=== PATIENT | female | born 2000 | race Caucasian/White ===

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

== ENCOUNTER 2019-04-18 12:17 | Emergency (ER) | payer SELFPAY ==
[~2019-04-18] VITALS: Ht 177.8 cm; Wt 122.7 kg
[2019-04-18] MEDS ORDERED: TETANUS,DIPTH,PERTUSS P/F (BOOSTRIX) 0.5 ML VIAL IM ONE (13:00)
[2019-04-18] MEDS ORDERED: TRIM/SULFAMETH 160/800 (SEPTRA DS) TAB PO ONE (13:30)
[2019-04-18] MEDS ORDERED: SULF1TAB35 PO (14:40)
--- NOTE | 2019-04-18 14:41 | ED Upper Extremity ---
General Chief Complaint: Laceration Stated Complaint: L THUMB LAC Nursing Triage Note: PT AMB TO TRIAGE WITH COMPLAINT OF LACERATION OF LEFT THUMB. 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 IS UNSURE WHEN LAST TETANUS WAS. Nursing Sepsis Screen: No Definite Risk Source: patient Exam Limitations: no limitations History of Present Illness Date Seen by Provider: Apr 18, 2019 Time Seen by Provider: 12:58 Initial Comments This 18-year-old young lady cut the tip of her left thumb with a knife while cutting [place]. The knife was clean other than the increase from the [place]ison. Bleeding has resolved. She is not up-to-date on her tetanus immunizations. Allergies and Home Medications Allergies Coded Allergies: No Known Drug Allergies (Unverified , 03/18/17) Home Medications Penicillin V Potassium 500 Mg Tablet, 500 MG PO QID, (Reported) Pnv Cmb#21/Iron/Folic Acid 1 Each Tablet, 1 EACH PO DAILY Prescribed by: JOSE ALFREDO HARLEY on 03/18/17 1446 Sulfamethoxazole/Trimethoprim 1 Each Tablet, 1 EACH PO BID Prescribed by: IRINA PRUETT on 04/18/19 1440 Patient Home Medication List Home Medication List Reviewed: Yes Review of Systems Constitutional: no symptoms reported EENTM: no symptoms reported Respiratory: no symptoms reported Cardiovascular: no symptoms reported Gastrointestinal: no symptoms reported Genitourinary: no symptoms reported : No Musculoskeletal: no symptoms reported Skin: see HPI Psychiatric/Neurological: No Symptoms Reported Past Fzxmwhi-Nmahtf-Vhfxal Hx Past Med/Social Hx: Reviewed Nursing Past Med/Soc Hx Patient Social History Alcohol Use: Denies Use Recreational Drug Use: Yes Drug of Choice: MARIJUANA Smoking Status: Current Everyday Smoker Type Used: Cigarettes 2nd Hand Smoke Exposure: Yes Recent Foreign Travel: No Contact w/Someone Who Travel: No Recent Infectious Disease Expo: No Recent Hopitalizations: No Immunizations Up To Date Tetanus Booster (TDap): More than 5yrs PED Vaccines UTD: Yes Past Medical History Surgeries: No Respiratory: No Cardiac: No Neurological: No : No Gastrointestinal: No Musculoskeletal: No 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 oz. 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, alert, normal mood/affect, oriented x 3 Progress/Results/Core Measures Results/Orders My Orders Orders - IRINA SPEAR MD Dipht,Pertsaturnino(Acell),Tet Adult (Boostrix (04/18/19 13:00) Sulfamethoxazole/Trimet Ds Tab (Bactrim (04/18/19 13:30) Medications Given in ED Current Medications Medications Dose Ordered Sig/Libby Route Start Time Stop Time Status Last Admin Dose Admin Diphtheria/ Tetanus/Acell Pertussis 0.5 ml ONCE ONCE IM 04/18/19 13:00 04/18/19 13:01 DC 04/18/19 14:16 0.5 ML Trimethoprim/ Sulfamethoxazole 1 ea ONCE ONCE PO 04/18/19 13:30 04/18/19 13:32 DC 04/18/19 14:15 1 EA Vital Signs/I&O 04/18/19 04/18/19 12:25 15:03 Temp 36.5 36.5 Pulse 75 75 Resp 20 20 B/P (MAP) 158/96 (116) 158/96 (116) Pulse Ox 99 99 O2 Delivery Room Air Blood Pressure Mean: 116 Progress Progress Note : Progress Note The flap on the distal tip of her thumb had already tightly adhered. The surface was scrubbed thoroughly with saline and chlorhexidine and rinsed. Glue was applied to help protect the wound. Tetanus immunization was administered. Antibiotic therapy with Bactrim was initiated to prevent infection since we could not clean beneath the laceration flap well. Patient was advised that the dusky portion of the skin would likely and slough off. Departure Impression Primary Impression: Laceration of thumb with damage to nail Qualified Codes: S61.112A - Laceration without foreign body of left thumb with damage to nail, initial encounter Disposition: 01 HOME, SELF-CARE Condition: Improved Departure-Patient Inst. Decision time for Depature: 14:37 Referrals: NO,LOCAL PHYSICIAN (PCP/Family) Primary Care Physician Patient Instructions: Laceration Repair With Glue (DC) Add. Discharge Instructions: Keep the wound clean and dry with the exception of normal handwashing. Do not submerge for several days. Allow the glue to slough off naturally, do not picked at it or peel it. You may trim loose ends of the glue or jagged edges of the nail with fingernail clippers. Monitor the wound for signs of infection such as increasing redness, increasing swelling, escalating pain, puslike drainage, or fever. Return to care promptly if you notice these symptoms. Complete the 5 days of antibiotics as prescribed. You may take Tylenol and/or ibuprofen for pain. Cover with a glove when active or in wet or dirty environments. Cover with a Band-Aid or other dressing at other times to prevent snagging. Avoid contact between the glue and Band-Aid or tape adhesive as contact with adhesives may loosen the glue. The pale skin on the tip of your thumb is nonviable. This skin will likely and slough off. It may turn black in the process. Do not be alarmed if this occurs. All discharge instructions reviewed with patient and/or family. Voiced understanding. Scripts Sulfamethoxazole/Trimethoprim (Bactrim Ds Tablet) 1 Each Tablet 1 EACH PO BID, #10 TAB Prov: IRINA SPEAR MD 04/18/19 Work/School Note: Work Release Form Date Seen in the Emergency Department: Apr 18, 2019 Return to Work: Apr 19, 2019 Other Restrictions Listed Below: Glove finger while at work for 2 weeks IRINA SPEAR MD Apr 18, 2019 14:41
[2019-04-18 15:03] VITALS: BP 158/96
== END 2019-04-18 15:03 | disposition home or self-care (01) ==
LOC: EDUNIT# 12:17 → ER 12:18
DX: S61.112A Laceration without foreign body of left thumb with damage to nail, initial encounter (principal); F17.210 Nicotine dependence, cigarettes, uncomplicated; Z23 Encounter for immunization; W26.0XXA Contact with knife, initial encounter
CPT/HCPCS: 12031; 90471; 90715